=== PATIENT | female | born 1965 ===

== ENCOUNTER 2024-01-23 09:16 | Outpatient (REF) | payer MEDICAID, SELFPAY | END 2024-01-23 09:17 | disposition home or self-care (01) | LOC: HO.HHCLNP 09:16 | PROVIDERS: Visit Provider Registered Nurse | DX: R30.0 Dysuria (principal) | CPT/HCPCS: 87086 ==

== ENCOUNTER 2024-02-05 11:17 | Outpatient (REF) | payer MEDICAID, SELFPAY ==
--- NOTE | ~2024-02-05 | XR_ITS ---
EXAMINATION: XR ANKLE, LEFT CLINICAL INFORMATION: Acute left ankle pain COMPARISON: None available. TECHNIQUE: AP, lateral, and mortise views of the left ankle. FINDINGS: Moderate lateral soft tissue swelling but the mortise is intact. Base of the fifth metatarsal intact. No fracture, dislocation or destructive lesion. Mild spurring along the inferior posterior margins of the calcaneus noted. XR/XR ankle LT min 3V IMPRESSION: Lateral soft tissue alterations. If there is concern for ATFL injury, MRI would be the study of choice.
== END 2024-02-05 11:18 | disposition home or self-care (01) ==
LOC: HO.HHCX 11:17
PROVIDERS: Visit Provider Family Medicine
DX: M25.572 Pain in left ankle and joints of left foot (principal)
CPT/HCPCS: 73610

== ENCOUNTER 2024-04-15 13:50 | Outpatient (REF) | payer MEDICAID, SELFPAY ==
[2024-04-15 16:08] LABS: MANUAL DIFF FLAG NO
[2024-04-15 16:22] LABS: Basophils Percent Auto 0.5 % (0-2); Eosinophils Absolute Auto 0.1 X10*3/uL (0.0-0.4); Eosinophils Percent Auto 1.2 % (0-4); Hematocrit 38.3 % (37.0-47.0); Hemoglobin 12.3 g/dl (12.0-16.0); Imm Gran Abs Auto 0.05 X10*3/uL (0.00-0.03); Imm Gran Pct Auto 0.6 % (0.0-0.4); Lymphocytes Absolute Auto 2.7 X10*3/uL (1.2-4.9); Lymphocytes Percent Auto 31.1 % (20-40); Mean Corpuscular HGB Conc 32.1 g/dl (31.0-35.0); Mean Corpuscular Hemoglobin 27.8 pg (27.0-33.0); Mean Corpuscular Volume 86.7 fL (80.0-98.0); Mean Platelet Volume 11.2 fL (9.4-12.3); Monocytes Absolute Auto 0.6 X10*3/uL (0.1-1.2); Monocytes Percent Auto 6.2 % (2-11); Neutrophils Absolute Auto 5.3 x10*3/uL (2.0-8.3); Neutrophils Percent Auto 60.4 % (45-73); Platelet Count 250 X10*3/uL (160-400); Red Blood Count 4.42 X10*6/uL (4.20-5.50); Red Cell Distribution Width 13.2 % (11.0-16.0); White Blood Count 8.8 X10*3/uL (4.8-10.8)
[2024-04-15 16:52] LABS: Alanine Aminotransferase 24 U/L (0-31); Albumin Level 4.2 g/dL (3.5-5.0); Alkaline Phosphatase 90 U/L (39-117); Anion Gap 12 (12-20); Aspartate Amino Transferase 20 U/L (5-31); Bilirubin Total 0.5 mg/dL (0.0-1.0); Blood Urea Nitrogen 11 mg/dL (9-16); Calcium 10.1 mg/dL (8.4-10.2); Carbon Dioxide 27 mmol/L (22-29); Chloride 107 mmol/L (96-108); Estimated Glomerular Filt Rate > 60; Glucose Random 138 mg/dL (60-115); Potassium 3.7 mmol/L (3.3-5.1); Sodium 142 mmol/L (135-145); Total Protein 7.6 g/dL (6.5-8.0)
[2024-04-15 16:59] LABS: TSH reflex Free T4 1.49 uIU/mL (0.32-4.0)
== END 2024-04-15 13:51 | disposition home or self-care (01) ==
LOC: HO.HHCL 13:50
PROVIDERS: Visit Provider Student in an Organized Health Care Education/Training Program
DX: Z13.89 Encounter for screening for other disorder (principal)
CPT/HCPCS: 36415; 80053; 84443; 85025

== ENCOUNTER 2024-05-11 08:46 | Outpatient (REF) | payer MEDICAID, SELFPAY | END 2024-05-11 08:47 | disposition home or self-care (01) | LOC: HO.HOSX 08:46 | PROVIDERS: Visit Provider Orthopaedic Surgery | DX: M25.562 Pain in left knee (principal) | CPT/HCPCS: 99202 ==

== ENCOUNTER 2024-05-11 10:28 | Outpatient (AMB) | payer MEDICAID, SELFPAY ==
--- NOTE | 2024-05-11 10:39 | A.OFFVIS_ITS ---
Vital Signs 05/11/24 10:46 Height 5 ft 4 in Weight 230 lb BMI 39.5 Intake Visit Reasons: [employer]ING [employer]ER- LT knee pain Intake Note: Uyen a 58 year old female who presents with complaints of progressively worsening left knee pain and giving way. The patient describes her pain as sharp in nature. She states that her symptoms have gotten worse over the last year. Most of the pain is along the medial aspect of her knee. She states that her left knee will give out several times per day. She has done formal physical therapy which gave her no relief. She has also tried Tylenol and Motrin which gave her minimal relief. She has failed the last 6 weeks of conservative treatments. [employer] Founder Name: Corry ID#[id number] Allergies prochlorperazine [From Compazine] Allergy (Verified 05/11/24 10:47) Anaphylaxis Medication List - Last Reconciled 05/11/24 by Evans Venegas MD albuterol sulfate 90 mcg/actuation (Ventolin HFA) 2 puffs inhalation Q4-6H PRN diclofenac sodium 1% topical fluticasone propion-salmeterol 500-50 mcg/dose (Advair Diskus) 1 ea inhalation lidocaine 5% patches topical losartan 25 mg PO QAM meclizine 25 mg PO TID PRN metformin ER 500 mg PO montelukast 10 mg PO BEDTIME tizanidine 2 mg PO Q6H PRN PFSH Surgical History (Updated 05/11/24 @ 10:50 by KENDALL Maldonado) Hx of section Social History (Updated 05/11/24 @ 10:50 by KENDALL Maldonado) Patient Tobacco Use Status: Never used Tobacco Current occupational status: employed Current occupation: [employer] Physical Exam Vital Signs: BMI result Body Mass Index 39.5 Const Other: Well-nourished well-developed very friendly female awake alert and oriented x3 in no acute distress Extrem Other: Bilateral lower extremity examination shows good capillary refill, no skin lesions noted, normal sensation light touch Left knee examination shows a minimal effusion, minimal crepitus with range of motion, tenderness along her medial joint line, positive Luz Maria's test, no instability Results Reviewed Results Reviewed: Standing full weight-bearing x-rays of the patient's left knee show mild diffuse joint space narrowing, no acute bony abnormalities Assessment & Plan Assessment & Plan (1) Left knee pain: Code(s): M25.562 - Pain in left knee Category: Medical Plan Ms. Thibodeaux presents with progressively worsening left knee pain and mechanical symptoms most likely due to a tear of her medial meniscus. Thus, I will send the patient for an MRI of her left knee for further evaluation. I will see her back once the MRI is completed to discuss the findings and treatment options. She will contact me prior to that time should her symptoms worsen in any way. I spent 20 minutes in reviewing the patient's records and imaging studies, seeing the patient and documenting in the medical record. Orders: Orders XR knee LT 3V 05/11/24 M25.562 - Pain in left knee MR knee LT wo con 05/11/24 M25.562 - Pain in left knee Coding Level of Care Code New Pt Level 3 (13568) Complex EM visit Add On G2211 Diagnoses Left knee pain M25.562
[2024-05-11 10:46] VITALS: BMI 39.5
== END 2024-05-11 10:59 | disposition home or self-care (01) ==
PROVIDERS: Visit Provider Orthopaedic Surgery
DX: M25.562 Pain in left knee (principal)
CPT/HCPCS: 99203

== ENCOUNTER 2024-06-24 16:44 | Outpatient (REF) | payer MEDICAID, SELFPAY ==
[2024-06-24 17:46] LABS: Appearance Urine Turbid; Color Urine Dark Yellow; Glucose Urine UA Negative (Negative); Leukocyte Esterase Urine Negative (Negative); Nitrite Urine Negative (Negative); Specific Gravity - Urine >= 1.030 (1.005-1.025); UMIC TRIGGER UACC YES; Urine Blood Trace (Negative); Urine Ketones Trace mg/dL (Negative); Urine Protein Trace mg/dL (Neg-Trace)
[2024-06-24 18:12] LABS: Bacteria Urine 4+ (None Seen); Calcium Oxalate Crystals Urine Present; Hyaline Casts Urine 0-2 /LPF (0-2); RBC Urine 0-2 /HPF (0-2); WBC Urine 0-5 /HPF (0-5)
== END 2024-06-24 16:45 | disposition home or self-care (01) ==
LOC: HO.LNP 16:44
PROVIDERS: Visit Provider Family Medicine
DX: R30.9 Painful micturition, unspecified (principal)
CPT/HCPCS: 81001

== ENCOUNTER 2024-08-07 | Outpatient (REF) | payer MEDICAID, SELFPAY ==
--- NOTE | ~2024-08-07 | MR_ITS ---
EXAMINATION: MR KNEE WITHOUT CONTRAST, LEFT CLINICAL INFORMATION: Left knee pain counseling, numbness. COMPARISON: None available. TECHNIQUE: MRI of the knee without contrast was performed using routine sequences on a high-field scanner. FINDINGS: MENISCI: Medial Meniscus: Intrasubstance degenerative signal within the meniscal body and posterior horn without articular surface tearing. Lateral Meniscus: Intact LIGAMENTS: Cruciate: Intact Collateral: Mild edema adjacent to the medial collateral ligament consistent with a grade 1 sprain. Intact fibular collateral ligament. EXTENSOR MECHANISM: Mild distal quadriceps tendinosis. Intact patellar tendon. Normal patellofemoral alignment. ARTICULAR CARTILAGE/BONE: Patellofemoral Compartment: Inferior medial trochlear articular cartilage signal heterogeneity. Medial Compartment: Intact articular cartilage. Lateral Compartment: Intact articular cartilage. JOINT FLUID AND BURSAE: Trace joint effusion and trace Madera's cyst. MR/MR knee LT wo con IMPRESSION: 1. Intrasubstance degenerative signal within the medial meniscal body and posterior horn without articular surface tearing. 2. Grade 1 sprain of the medial collateral ligament. 3. Mild distal quadriceps tendinosis. 4. Minimal patellofemoral arthrosis. Trace joint effusion and trace Madera's cyst. Electronically signed by: Taiwo Stevenson MD 08/19/2024 01:17 PM [facility]
== END 2024-08-07 00:01 | disposition home or self-care (01) ==
LOC: HO.MRI
PROVIDERS: PCP Family Medicine; Visit Provider Orthopaedic Surgery
DX: M25.562 Pain in left knee (principal)
CPT/HCPCS: 73721

== ENCOUNTER 2024-09-22 17:20 | Emergency (ER) | payer MEDICAID, SELFPAY ==
[2024-09-22 17:26] VITALS: BP 153/79; PULSE 107; RESP 20; TEMP 37.3; O2SAT 95; BMI 60.5
--- NOTE | 2024-09-22 17:29 | ED.GENADULT ---
HPI - General Adult General Chief complaint: Upper Respiratory Symptoms Stated complaint: headache x4 days Related Data Home Medications ?Medication ?Instructions ?Recorded ?Confirmed albuterol sulfate 90 mcg/actuation 2 puff inhalation Q4-6H PRN dyspnea 05/11/24 09/27/24 aerosol inhaler (Ventolin HFA) fluticasone 500 mcg-salmeterol 50 1 ea inhalation BID 05/11/24 09/27/24 mcg/dose blistr powdr for inhalation (Advair Diskus) losartan 25 mg tablet 25 mg PO QAM 05/11/24 09/27/24 meclizine 25 mg tablet 25 mg PO TID PRN dizziness 05/11/24 09/27/24 metformin 500 mg tablet,extended 500 mg PO BID 05/11/24 09/27/24 release 24 hr montelukast 10 mg tablet 10 mg PO BEDTIME 05/11/24 09/27/24 loratadine 10 mg tablet 10 mg PO DAILY 09/27/24 09/27/24 Previous Rx's ?Medication ?Instructions ?Recorded benzonatate 100 mg capsule 100 mg PO TID PRN Cough #9 caps 09/29/24 cefuroxime axetil 500 mg tablet 500 mg PO BID #6 tabs 09/29/24 doxycycline hyclate 100 mg tablet 100 mg PO BID #6 tabs 09/29/24 prednisone 10 mg tablet See Taper PO DIRECTED #30 tabs 09/29/24 Allergies Allergy/AdvReac Type Severity Reaction Status Date / Time prochlorperazine Allergy Anaphylaxis Verified 09/26/24 14:28 [From Compazine] [facility] Past Medical History Medical History (Updated 10/22/24 @ 12:55 by Raul Aden) Anxiety Insulin dependent type 2 diabetes mellitus Asthma Surgical History Hx of section Social History Social History Household Members: Children Housing: Apartment Do you presently have visiting nurse or other home services: No Patient Tobacco Use Status: Never used Tobacco service: No Current occupational status: employed 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 She also complains of nausea and unable to eat anything. Plan for viral swabs and labs Medical Decision Making Lab Data 09/22/24 18:25 09/22/24 18:25 Labs: Lab Results 09/22/24 Range/Units 18:25 WBC 8.4 (4.8-10.8) X10*3/uL RBC 4.70 (4.20-5.50) X10*6/uL Hgb 13.1 (12.0-16.0) g/dl Hct 40.6 (37.0-47.0) % MCV 86.4 (80.0-98.0) fL MCH 27.9 (27.0-33.0) pg MCHC 32.3 (31.0-35.0) g/dl RDW 13.3 (11.0-16.0) % Plt Count 231 (160-400) X10*3/uL MPV 10.7 (9.4-12.3) fL Immature Gran % (Auto) 0.4 (0.0-0.4) % Neut % (Auto) 76.6 H (45-73) % Lymph % (Auto) 13.3 L (20-40) % [place] % (Auto) 9.5 (2-11) % Eos % (Auto) 0.0 (0-4) % Baso % (Auto) 0.2 (0-2) % Lymph # (Auto) 1.1 L (1.2-4.9) X10*3/uL [place] # (Auto) 0.8 (0.1-1.2) X10*3/uL Eos # (Auto) 0.0 (0.0-0.4) X10*3/uL Baso # (Auto) 0.0 (0.0-0.2) X10*3/uL Abs Immat Gran (auto) 0.03 (0.00-0.03) X10*3/uL Absolute Neuts (auto) 6.5 (2.0-8.3) x10*3/uL Absolute Nucleated RBC 0.000 (0.0-0.012) X10*3/uL Nucleated RBC % (auto) 0.0 (0.0-0.2) /100WBC Sodium 136 (135-145) mmol/L Potassium 4.0 (3.3-5.1) mmol/L Chloride 105 (96-108) mmol/L Carbon Dioxide 26 (22-29) mmol/L Anion Gap 9 L (12-20) BUN 15 (9-16) mg/dL Creatinine 0.96 (0.5-1.4) mg/dL Estim Creat Clear Calc 98.8 Estimated GFR 60 Random Glucose 178 H (60-115) mg/dL Calcium 9.1 D (8.4-10.2) mg/dL Total Bilirubin 0.5 (0.0-1.0) mg/dL AST 28 (5-31) U/L ALT 33 H (0-31) U/L Alkaline Phosphatase 101 (39-117) U/L Total Protein 7.8 (6.5-8.0) g/dL Albumin 4.2 (3.5-5.0) g/dL Lipase 19 (8-78) U/L Influenza Type A (PCR) POSITIVE A (Negative) Influenza Type B (PCR) NEGATIVE (Negative) RSV RNA Qual (PCR) NEGATIVE (Negative) SARS-CoV-2 RNA (RT-PCR) NEGATIVE (Negative) S. pyogenes GrpA SG Negative (Negative) Discharge Plan Discharge Clinical Impression: Cough Patient Disposition: Left W/O Completing Treatment Prescriptions: No Action loratadine 10 mg Tablet 10 mg PO DAILY benzonatate 100 mg Capsule 100 mg PO TID PRN (Reason: Cough) Qty: 9 0RF prednisone 10 mg tablet See Taper PO DIRECTED Qty: 30 0RF Taper: Prednisone 40 mg daily for 3 Days and 0 Hour 30 mg daily for 3 Days and 0 Hour 20 mg daily for 3 Days and 0 Hour 10 mg daily for 3 Days and 0 Hour Rx Instructions: see taper instructions cefuroxime axetil 500 mg tablet 500 mg PO BID Qty: 6 0RF doxycycline hyclate 100 mg tablet 100 mg PO BID Qty: 6 0RF albuterol sulfate [Ventolin HFA] 90 mcg/actuation HFA aerosol inhaler 2 puff inhalation Q4-6H PRN (Reason: dyspnea) metformin 500 mg tablet extended release 24 hr 500 mg PO BID losartan 25 mg tablet 25 mg PO QAM fluticasone propion-salmeterol [Advair Diskus] 500-50 mcg/dose blister with device 1 ea inhalation BID meclizine 25 mg tablet 25 mg PO TID PRN (Reason: dizziness) montelukast 10 mg tablet 10 mg PO BEDTIME Discharge Date/Time: 09/22/24 20:11
[2024-09-22 18:29] LABS: MANUAL DIFF FLAG NO
[2024-09-22 18:33] LABS: Basophils Percent Auto 0.2 % (0-2); Hematocrit 40.6 % (37.0-47.0); Hemoglobin 13.1 g/dl (12.0-16.0); Imm Gran Abs Auto 0.03 X10*3/uL (0.00-0.03); Imm Gran Pct Auto 0.4 % (0.0-0.4); Lymphocytes Absolute Auto 1.1 X10*3/uL (1.2-4.9); Lymphocytes Percent Auto 13.3 % (20-40); Mean Corpuscular HGB Conc 32.3 g/dl (31.0-35.0); Mean Corpuscular Hemoglobin 27.9 pg (27.0-33.0); Mean Corpuscular Volume 86.4 fL (80.0-98.0); Mean Platelet Volume 10.7 fL (9.4-12.3); Monocytes Absolute Auto 0.8 X10*3/uL (0.1-1.2); Monocytes Percent Auto 9.5 % (2-11); Neutrophils Absolute Auto 6.5 x10*3/uL (2.0-8.3); Neutrophils Percent Auto 76.6 % (45-73); Platelet Count 231 X10*3/uL (160-400); Red Cell Distribution Width 13.3 % (11.0-16.0); White Blood Count 8.4 X10*3/uL (4.8-10.8)
[2024-09-22 18:36] LABS: IDNOW Serial# 08D9AD1C; Strep A Nucleic Acid Negative (Negative)
[2024-09-22 19:03] LABS: Alanine Aminotransferase 33 U/L (0-31); Albumin Level 4.2 g/dL (3.5-5.0); Alkaline Phosphatase 101 U/L (39-117); Anion Gap 9 (12-20); Aspartate Amino Transferase 28 U/L (5-31); Bilirubin Total 0.5 mg/dL (0.0-1.0); Blood Urea Nitrogen 15 mg/dL (9-16); Calcium 9.1 mg/dL (8.4-10.2); Carbon Dioxide 26 mmol/L (22-29); Chloride 105 mmol/L (96-108); Creatinine Clr Calc Pharmacy 98.8; Estimated Glomerular Filt Rate 60; Glucose Random 178 mg/dL (60-115); Lipase 19 U/L (8-78); Sodium 136 mmol/L (135-145); Total Protein 7.8 g/dL (6.5-8.0)
[2024-09-22 19:10] LABS: Influenza A PCR POSITIVE (Negative); Influenza B PCR NEGATIVE (Negative); Resp Syncy Virus RNA Qual PCR NEGATIVE (Negative); SARS COV2 PCR INHOUSE NEGATIVE (Negative)
== END 2024-09-22 20:11 | disposition left against medical advice (07) ==
PROVIDERS: Physician Assistant; Emergency Provider Emergency Medicine; PCP Family Medicine
DX: R05.9 Cough, unspecified (principal); J10.1 Influenza due to other identified influenza virus with other respiratory manifestations; R51.9 Headache, unspecified; R09.89 Other specified symptoms and signs involving the circulatory and respiratory systems; E11.8 Type 2 diabetes mellitus with unspecified complications; Z79.84 Long term (current) use of oral hypoglycemic drugs
CPT/HCPCS: 0241U; 36415; 80053; 83690; 85025; 87651; 99281; 99283

== ENCOUNTER 2024-09-26 14:02 | Inpatient (IN) | payer MEDICAID, SELFPAY ==
[2024-09-26] VITALS (7 sets, daily range): BP systolic 108–154; BP diastolic 64–91; PULSE 88–108; RESP 16–22; TEMP 37–38; O2SAT 94–98; BMI 44.8
--- NOTE | ~2024-09-26 | CT_ITS ---
CLINICAL HISTORY: further eval of R lung mass (infection vs. mass) CTA angiography chest using bolus contrast injection. 3-D postprocessing Comparison: 09/1924 Findings: Normal thoracic aorta and branch vessels. Pulmonary artery diameter is normal. Heart size is mildly enlarged. . RV/LV ratio normal. No pericardial fluid. No mediastinal adenopathy. A 9 mm short axis diameter lymph node is present in the anterior distal pretracheal space. The trachea and esophagus are unremarkable. There is focal pleural-based consolidation involving posterior right upper lobe segment with Hounsfield density consistent with consolidation/pneumonia. Below the diaphragm , there is an enlarged fatty liver. Calcification is present in the gallbladder. No acute fractures Impression: Focal consolidation/pneumonia involving the posterior segment of the right upper lobe. No solid pulmonary masses or nodules. Borderline cardiac enlargement with pulmonary vascular congestion and posterior bilateral lower lung field atelectasis and gravity dependent pulmonary edema. . Negative for pulmonary embolus. There is complete occlusion of posterior segment right upper lobe bronchus, image 151, series 5. This document has been electronically signed by: Rajan Leon MD on 09/26/2024 19:25:59
--- NOTE | ~2024-09-26 | XR_ITS ---
CLINICAL HISTORY: right lung pain 2 view chest x-ray. Comparison: None Findings: No pleural effusion . There is a 4.2 cm mass in the right upper lung field. Left lung is clear. Heart size normal No acute fracture Impression: 4.2 cm round mass in the right upper lung field. Evaluate for neoplasm, consider CT if not already done. This document has been electronically signed by: Rajan Leon MD on 09/26/2024 15:26:33
--- NOTE | 2024-09-26 14:25 | ED_ITS ---
HPI - General Adult General Chief complaint: General Medical Stated complaint: Side pain, FLU+ last week Time Seen by Provider: 09/26/24 15:58 Source: patient, family (patient's daughter), old records reviewed and spearer (all interactions with this patient were facilitated with an [facility] business office technology instructor) Mode of arrival: ambulatory Limitations: language barrier (all interactions with this patient were facilitated with an [facility] business office technology instructor) History of Present Illness ED Provider: Shantal Soriano PA-C HPI narrative: Patient is a 59 year old assigned female at with a history of DM, HTN, and recent influenza diagnosis presenting to the emergency department today with nausea, vomiting, diarrhea, and right lung pain. Patient states that over the last 6 days she has had worsening nausea, vomiting, diarrhea, and right sided lung pain. Patient denies any dizziness, lightheadedness, abdominal pain, fever, chills, blurry vision, double vision, loss of vision, difficulty breathing, shortness of breath, back pain, night sweats, pain with urination, increased urinary frequency, increased urinary urgency, blood in her urine or stool, syncope or a near syncopal episode, recent trauma or falls, bowel incontinence, bladder incontinence, or any other complaints at this time. Onset (ago): day(s) () Relieving factors: none Exacerbating factors: none Associated symptoms: nausea/vomiting Treatments prior to arrival: none Related Data Home Medications ?Medication ?Instructions ?Recorded ?Confirmed albuterol sulfate 90 mcg/actuation 2 puff inhalation Q4-6H PRN dyspnea 05/11/24 05/11/24 aerosol inhaler (Ventolin HFA) diclofenac sodium 1 % topical gel topical 05/11/24 05/11/24 fluticasone 500 mcg-salmeterol 50 1 ea inhalation 05/11/24 05/11/24 mcg/dose blistr powdr for inhalation (Advair Diskus) lidocaine 5 % topical patch patch topical 05/11/24 05/11/24 losartan 25 mg tablet 25 mg PO QAM 05/11/24 05/11/24 meclizine 25 mg tablet 25 mg PO TID PRN dizziness 05/11/24 05/11/24 metformin 500 mg tablet,extended 500 mg PO 05/11/24 05/11/24 release 24 hr montelukast 10 mg tablet 10 mg PO BEDTIME 05/11/24 05/11/24 tizanidine 2 mg tablet 2 mg PO Q6H PRN muscle spasm 05/11/24 05/11/24 Allergies Allergy/AdvReac Type Severity Reaction Status Date / Time prochlorperazine Allergy Anaphylaxis Verified 09/26/24 14:28 [From Compazine] Review of Systems 2 Constitutional: Constitutional: Reports no additional constitutional complaints, Denies chills, Denies fever(s) and Denies night sweats Eyes: Eyes: Reports no additional eye complaints, Denies blurry vision, Denies change in vision, Denies diplopia, Denies eye discharge, Denies loss of vision and Denies eye pain ENT: Denies dizziness Cardiovascular: Cardiovascular: Reports no additional cardiovascular complaints, Reports chest pain, Denies lightheadedness, Denies Loss of Consciousness and Denies dyspnea Respiratory: Respiratory: Reports no additional respiratory complaints and Denies dyspnea Gastrointestinal: Gastrointestinal: Reports no additional gastrointestinal complaints, Denies abdominal pain, Denies melena, Denies hematochezia, Denies change in bowel habits, Denies change in stool character, Reports nausea and Reports vomiting Genitourinary: Genitourinary: Denies hematuria, Denies urinary frequency, Denies dysuria, Denies urinary incontinence, Denies urinary hesitancy and Denies urinary urgency Musculoskeletal: Musculoskeletal: Reports no additional musculoskeletal complaints, Denies numbness and Denies tingling Neurologic: Denies dizziness, Denies loss of vision, Denies numbness and Denies tingling Psychiatric: Psychiatric: Reports no additional psychiatric complaints Endocrine: Endocrine: Reports no additional endocrine complaints Hematologic/Lymphatic: Hematologic/Lymphatic: Reports no additional hematologic/lymphatic complaints Allergic/Immunologic: Allergic/Immunologic: Reports no additional allergic/immunologic complaints [facility] Past Medical History Attestation statement: The following information was validated with the patient. (all interactions validated with the patient's daughter) Source: old records reviewed, obtained from family (patient's daughter provided additional history and confirmed the history provided by the patient.) and nursing notes reviewed Surgical History Hx of section Social History Social History Patient Tobacco Use Status: Never used Tobacco Advance Directives: No Advance Directives Information Provided: No Current occupational status: employed Current occupation: [employer] Physical Exam ED Vital Signs: Vital Signs - 24 hr 09/26/24 14:25 09/26/24 16:42 09/26/24 17:06 Temperature 100 F 100.4 F Pulse Rate 108 H 100 99 Respiratory Rate 22 H 18 19 Blood Pressure 140/80 H 140/73 H 154/76 H Pulse Oximetry 97 94 98 Oxygen Delivery Method Room Air Room Air Nasal Cannula Oxygen Flow Rate 2 09/26/24 18:33 Temperature 99 F Pulse Rate 107 H Respiratory Rate 19 Blood Pressure 130/91 H Pulse Oximetry 98 Oxygen Delivery Method Nasal Cannula Oxygen Flow Rate 2 BMI result Body Mass Index 44.8 Const General: cooperative, no acute distress, alert and awake Nutritional Appearance: well nourished Orientation/consciousness: patient oriented x3 Limitations: no limitations HENMT Head: Yes normal to inspection and Yes atraumatic Ears: hearing grossly normal bilaterally and external ears normal General nose exam: Normal external nose present, no nasal discharge noted and no epistaxis Face and sinus: Yes normal facial exam, No abrasion and No laceration Mouth: Normal oral and palatal mucosa present, no drooling and no muffled voice Eyes General: appearance normal, both eyes and all related structures Periorbital: periorbital findings normal Eyelids: Yes eyelids normal Conjunctivae: conjunctivae normal Pupils: Equal, round and reactive pupils present EOM: EOMs intact bilaterally Neck Neck: Yes normal visual inspection, Yes full ROM and Yes no lymphadenopathy Chest Chest palpation & inspection: normal inspection of the chest Resp Effort & Inspection: normal respiratory effort and able to speak in complete sentences Cardio Rate: tachycardic Rhythm: regular rhythm GI Inspection: Yes normal to inspection Neuro General: patient oriented x3 and moves all extremities Cranial nerves: Yes Equal, round and reactive pupils present Cognition (Neuro): normal cognition Extrem General: Yes normal to inspection, Yes full ROM and Yes capillary refill normal Psych Appearance: grossly normal Mental Status: mental status grossly normal Affect: normal affect Attitude: cooperative Thought process: Normal thought process present Thought content: Normal thought content present Insight: Good insight present (Psych) Course Course Course Narrative: This is a Rapid Medical Examination (RME) performed by Davidson Chester PA-C in triage. Full HPI, ROS, assessment and treatment plan per primary provider in the Main ED. 59 yo female here w/ fever, nausea, vomiting, diarrhea, dizziness, and right lung pain x6 days. seen in our ED on 09/22/24 - [facility]. she was called and informed that she was flu A positive. Plan: labs, CXR, ekg. no need for repeat serology. Medications Administered Discontinued Medications Generic Name Dose Route Start Last Admin Trade Name Billy PRN Reason Stop Dose Admin Ceftriaxone Sodium 1 gm 09/26/24 16:04 09/26/24 16:34 Ceftriaxone Sodium 1 Gm Vial IVPUSH 09/26/24 16:05 1 gm ONCE ONE Administration Hydromorphone HCl 1 mg 09/26/24 16:49 09/26/24 16:58 Hydromorphone Hcl 1 Mg/Ml Syringe IVPUSH 09/26/24 16:50 1 mg ONCE ONE Administration Protocol Acetaminophen 1,000 mg in 100 mls @ 400 mls/hr 09/26/24 18:24 09/26/24 18:31 Ofirmev IV 09/26/24 18:38 400 mls/hr ONCE ONE Administration Iohexol 85 ml 09/26/24 18:06 09/26/24 18:07 Iohexol 350 Mg/Ml 100 Ml Infus..Btl IV 09/26/24 18:07 85 ml ONCE ONE Administration Morphine Sulfate 4 mg 09/26/24 16:23 09/26/24 16:31 Morphine Sulfate 4 Mg/Ml Cartridge IVPUSH 09/26/24 16:24 4 mg ONCE ONE Administration Protocol Ondansetron HCl 4 mg 09/26/24 16:04 09/26/24 16:19 Ondansetron Hcl 4 Mg/2 Ml Vial IVPUSH 09/26/24 16:05 4 mg ONCE ONE Administration Medical Decision Making Medical Decision Making [facility] Narrative: Patient is a 59 year old assigned female at with a history of DM, HTN, and recent influenza diagnosis presenting to the emergency department today with nausea, vomiting, diarrhea, and right lung pain. Patient's physical exam was as noted in the physical exam portion of this note. Patient's blood work showed a WBC count of 14.9. Patient's influenza test was positive as of 09/22/2024. Patient's EKG showed tachycardia. Patient's chest x-ray showed a 4cm mass in the right lung which the radiologist recommended a CT scan to further differentiate. Chest CT showed focal consolidation / pneumonia in the posterior aspect of the right upper lung lobe. I spoke to the hospitalist, Dr. Bautista, who agreed to admission. Patient was given IV Ceftriaxone and pain medication. Patient's presentation is most consistent with superimposed pneumonia with viral influenza and not sepsis (@1935). I explained my physical exam findings as well as all test results to the patient and the patient's daughter. I answered all questions asked by the patient and the patient's. Patient and the patient's daughter verbalized agreement and understanding with this treatment plan and admission. Differential Diagnosis Differential Diagnoses: The differential diagnosis associated with the presentation includes PNA Influenza Admission/Observation Consideration of admission/observation: Escalation of care including admission/observation considered Patient admitted as noted in the MDM Rationale portion of this note. Consult Healthcare Provider Management of the patient was discussed with: Hospitalist (agreed to admission as noted in the MDM Rationale portion of this note.) Lab Data [facility] Lab Attestation statement: I reviewed the patient's lab results. My interpretation of these results are in the MDM Rationale portion of this note. 09/26/24 14:49 09/26/24 14:49 Labs: Lab Results 09/26/24 09/26/24 Range/Units 14:49 16:25 WBC 14.9 H (4.8-10.8) X10*3/uL RBC 4.69 (4.20-5.50) X10*6/uL Hgb 13.1 (12.0-16.0) g/dl Hct 39.0 (37.0-47.0) % MCV 83.2 (80.0-98.0) fL MCH 27.9 (27.0-33.0) pg MCHC 33.6 (31.0-35.0) g/dl RDW 13.1 (11.0-16.0) % Plt Count 271 (160-400) X10*3/uL MPV 10.3 (9.4-12.3) fL Immature Gran % (Auto) 0.7 H (0.0-0.4) % Neut % (Auto) 78.2 H (45-73) % Lymph % (Auto) 14.5 L (20-40) % [place] % (Auto) 6.5 (2-11) % Eos % (Auto) 0.0 (0-4) % Baso % (Auto) 0.1 (0-2) % Lymph # (Auto) 2.2 (1.2-4.9) X10*3/uL [place] # (Auto) 1.0 (0.1-1.2) X10*3/uL Eos # (Auto) 0.0 (0.0-0.4) X10*3/uL Baso # (Auto) 0.0 (0.0-0.2) X10*3/uL Abs Immat Gran (auto) 0.10 H (0.00-0.03) X10*3/uL Absolute Neuts (auto) 11.6 H (2.0-8.3) x10*3/uL Absolute Nucleated RBC 0.000 (0.0-0.012) X10*3/uL Nucleated RBC % (auto) 0.0 (0.0-0.2) /100WBC PT 12.5 H (10.9-12.4) SEC INR 1.1 (0.9-1.1) Sodium 140 (135-145) mmol/L Potassium 3.6 (3.3-5.1) mmol/L Chloride 108 (96-108) mmol/L Carbon Dioxide 19 L (22-29) mmol/L Anion Gap 17 (12-20) BUN 14 (9-16) mg/dL Creatinine 0.77 (0.5-1.4) mg/dL Estim Creat Clear Calc 94.8 Estimated GFR > 60 Random Glucose 139 H (60-115) mg/dL Lactic Acid 1.6 (0.5-2.0) mmol/L Calcium 9.0 (8.4-10.2) mg/dL Magnesium 1.6 (1.6-2.6) mg/dL Total Bilirubin 0.5 (0.0-1.0) mg/dL AST 37 H (5-31) U/L ALT 28 (0-31) U/L Alkaline Phosphatase 92 (39-117) U/L Troponin I High Sens 7.4 (<3.5-17.0) ng/L Total Protein 8.0 (6.5-8.0) g/dL Albumin 4.0 (3.5-5.0) g/dL Lipase 28 (8-78) U/L Independent Interpretation I performed an independent interpretation of an: EKG, Plain X-Ray and CT Scan Interpretation: My interpretation is in agreement with the radiologist's impression of these imaging studies. L CLINICAL HISTORY: right lung pain 2 view chest x-ray. Comparison: None Findings: No pleural effusion . There is a 4.2 cm mass in the right upper lung field. Left lung is clear. Heart size normal No acute fracture Impression: 4.2 cm round mass in the right upper lung field. Evaluate for neoplasm, consider CT if not already done. This document has been electronically signed by: Rajan Leon MD on 09/26/2024 15:26:33 Dictated By: Rajan Leon MD Signed By: Electronically signed by Rajan Leon MD 09/26/24 1527 Report Number: [id number]: Total DLP = 385.00 mGy-cm CLINICAL HISTORY: further eval of R lung mass (infection vs. mass) CTA angiography chest using bolus contrast injection. 3-D postprocessing Comparison: 09/1924 Findings: Normal thoracic aorta and branch vessels. Pulmonary artery diameter is normal. Heart size is mildly enlarged. . RV/LV ratio normal. No pericardial fluid. No mediastinal adenopathy. A 9 mm short axis diameter lymph node is present in the anterior distal pretracheal space. The trachea and esophagus are unremarkable. There is focal pleural-based consolidation involving posterior right upper lobe segment with Hounsfield density consistent with consolidation/pneumonia. Below the diaphragm , there is an enlarged fatty liver. Calcification is present in the gallbladder. No acute fractures Impression: Focal consolidation/pneumonia involving the posterior segment of the right upper lobe. No solid pulmonary masses or nodules. Borderline cardiac enlargement with pulmonary vascular congestion and posterior bilateral lower lung field atelectasis and gravity dependent pulmonary edema. . Negative for pulmonary embolus. There is complete occlusion of posterior segment right upper lobe bronchus, image 151, series 5. This document has been electronically signed by: Rajan Leon MD on 09/26/2024 19:25:59 Dictated By: Rajan Leon MD Signed By: Electronically signed by Rajan Leon MD 09/26/24 1927 Vent. Rate: 109 BPM Atrial Rate: 109 BPM P-R Int: 126 ms QRS Dur: 78 ms QT Int: 320 ms P-R-T Axes: 54 5 13 degrees QTcB Int: 430 ms Sinus tachycardia Nonspecific ST abnormality No previous ECGs available DD/ [id number] Radiology Impression Discussion of test interpretation with radiology: I have reviewed the radiologist's reading. Independent Historian Clinical information obtained from an independent historian. History obtained from or confirmed by: Other (patient's daughter provided additional history and confirmed the history provided by the patient.) Chronic Conditions Patient?s care impacted by: Diabetes and Hypertension Critical Care Time Critical Care Time Critical Care Time: Yes Total Critical Care Time: 48 Attestation: I spent 48 minutes of Critical Care Time with this patient. This does not include time spent on separately reported billable procedures. Discharge Plan Discharge Clinical Impression: Pneumonia, Influenza Patient Disposition: Admitted As Inpatient
--- NOTE | 2024-09-26 14:27 | ECG_ITS ---
Test Reason : CHEST PAIN Blood Pressure : */* mmHG Vent. Rate : 109 BPM Atrial Rate : 109 BPM P-R Int : 126 ms QRS Dur : 78 ms QT Int : 320 ms P-R-T Axes : 54 5 13 degrees QTcB Int : 430 ms Sinus tachycardia Nonspecific ST abnormality Abnormal ECG No previous ECGs available Referred By: Tawny Chester Electronically Signed By: CALOS RENDON MD
[2024-09-26 14:57] LABS: MANUAL DIFF FLAG NO
[2024-09-26 14:58] LABS: Basophils Percent Auto 0.1 % (0-2); Hemoglobin 13.1 g/dl (12.0-16.0); Imm Gran Pct Auto 0.7 % (0.0-0.4); Lymphocytes Absolute Auto 2.2 X10*3/uL (1.2-4.9); Lymphocytes Percent Auto 14.5 % (20-40); Mean Corpuscular HGB Conc 33.6 g/dl (31.0-35.0); Mean Corpuscular Hemoglobin 27.9 pg (27.0-33.0); Mean Corpuscular Volume 83.2 fL (80.0-98.0); Mean Platelet Volume 10.3 fL (9.4-12.3); Monocytes Percent Auto 6.5 % (2-11); Neutrophils Absolute Auto 11.6 x10*3/uL (2.0-8.3); Neutrophils Percent Auto 78.2 % (45-73); Platelet Count 271 X10*3/uL (160-400); Red Blood Count 4.69 X10*6/uL (4.20-5.50); Red Cell Distribution Width 13.1 % (11.0-16.0); White Blood Count 14.9 X10*3/uL (4.8-10.8)
[2024-09-26 15:04] LABS: INTERNATIONAL NORM RATIO 1.1 (0.9-1.1); Prothrombin Time 12.5 SEC (10.9-12.4)
[2024-09-26 15:24] LABS: Troponin-I High Sensitivity 7.4 ng/L (<3.5-17.0)
[2024-09-26 15:27] LABS: Alanine Aminotransferase 28 U/L (0-31); Anion Gap 17 (12-20); Aspartate Amino Transferase 37 U/L (5-31); Bilirubin Total 0.5 mg/dL (0.0-1.0); Blood Urea Nitrogen 14 mg/dL (9-16); Carbon Dioxide 19 mmol/L (22-29); Chloride 108 mmol/L (96-108); Creatinine Clr Calc Pharmacy 94.8; Estimated Glomerular Filt Rate > 60; Glucose Random 139 mg/dL (60-115); Lipase 28 U/L (8-78); Magnesium 1.6 mg/dL (1.6-2.6); Potassium 3.6 mmol/L (3.3-5.1); Sodium 140 mmol/L (135-145)
[2024-09-26 16:04] LABS: Alkaline Phosphatase 92 U/L (39-117)
[2024-09-26] MEDS: ondansetron HCL 4 MG/2 ML VIAL IVPUSH ×2 (16:19→21:47)
[2024-09-26] MEDS: Morphine Sulfate 4 MG/ML CARTRIDGE IVPUSH ×2 (16:31→21:11)
[2024-09-26] MEDS: cefTRIAXone sodium 1 GM VIAL IVPUSH (16:34)
--- NOTE | 2024-09-26 16:43 | MHC.EDTECH ---
This pct just assumed care of ,lactic acid and both sets of blood culture drawn and sent to lab ,Patient was change into hospital gown ,vitals taken ,Patient resting with her eyes closed ,Patient daughter at bed side .
[2024-09-26 16:58] LABS: Lactic Acid 1.6 mmol/L (0.5-2.0)
[2024-09-26] MEDS: HYDROmorphone HCl 1 MG/ML SYRINGE IVPUSH (16:58)
--- NOTE | 2024-09-26 17:07 | PC.NURSE ---
sr on monitor, skin wpd, medicated for pain, nad and reports improvement, sleeping and easily woken, rates /10, placed on 02 for shallow breathing and spo2 dipped to 89 on RA
[2024-09-26] MEDS: iohexoL 350 MG/ML 100 ML INFUS..BTL 85 ML IV (18:07)
[2024-09-26] MEDS: Acetaminophen 1,000 MG/100 ML PIGGYBACK 400 MG IV (18:31)
[2024-09-26 20:35] LABS: B Type Natriuretic Peptide 49 pg/mL (<100)
--- NOTE | 2024-09-26 20:46 | P.HPHOSP_ITS ---
History of Present Illness Date of Service: 09/26/24 Attending physician on admission: Janae Bautista Chief Complaint: Right lung pain Pt is a 59-year-old female with a PMH significant for?asthma, [id number] type 2 diabetes, HTN, and migraines who presents to the ED with?shortness a breath and right lung pain. Pt previously presented to the ED 4 days prior on 09/22 where she had labs drawn, though was never seen by a provider as she left from the waiting room due to heavy volume. Pt has been experiencing SOB, low-grade fever, chills, and cough x6 days. Tested positive for flu. Patient's symptoms worsened and she began experiencing right sided chest/lung pain x3 days, and N/V/D x2 days. Also complains of headache. Denies chest pain/pressure. No abdominal pain. Of note, patient's daughter is at bedside who reports her mother has severe anxiety and she will likely need to stay with her at night. Reports previous hospitalization she was called at 04:00 to come to the hospital to calm her down. In the ED pt with low-grade temp of 100.4 degrees, tachycardic up to 108, tachypneic up to 22, and hypertensive as high as 154/76. Labs were significant for leukocytosis of 14.9, otherwise grossly unremarkable and around baseline for pt. Stable H&H. No significant electrolyte abnormalities. Renal and hepatic function baseline. Lactic acid WNL. BNP WNL. CXR showed 4.2 cm round mass in the right upper lung field concerning for neoplasm. CTA of chest found focal consolidation/pneumonia involving the posterior segment of the right upper lobe with complete occlusion of posterior segment of right upper lobe. EKG demonstrated sinus tachycardia of 109 without signs of significant ST elevations or depressions. Pt was treated with ondansetron, morphine, Dilaudid, Tylenol, and ceftriaxone. Pt will be admitted to the hospital for treatment and further evaluation of community acquired pneumonia with sepsis with concomitant asthma exacerbation in the setting of flu infection. Review of Systems 2 Review of Systems: Negative except for that which is stated in the [facility] Medical History (Updated 09/26/24 @ 21:12 by LILLIE Morejon) Anxiety Insulin dependent type 2 diabetes mellitus Asthma Surgical History Hx of section Social History Patient Tobacco Use Status: Never used Tobacco Advance Directives: No Advance Directives Information Provided: No Current occupational status: employed Current occupation: [employer] Meds Allergies Allergy/AdvReac Type Severity Reaction Status Date / Time prochlorperazine Allergy Anaphylaxis Verified 09/26/24 14:28 [From Compazine] Active Medications: Current Medications Acetaminophen (Acetaminophen 325 Mg Tablet) 650 mg PO Q6H PRN PRN Reason: Pain, Mild 1-3,fever,headache Albuterol/Ipratropium (Albuterol/Iprat 2.5/0.5mg 3 Ml Ampul.Neb) 3 ml INHALE Q4H PRN PRN Reason: Shortness of Breath/Wheezing Albuterol/Ipratropium (Albuterol/Iprat 2.5/0.5mg 3 Ml Ampul.Neb) 3 ml INHALE RQ4H WHILE AWAKE [facility] Benzonatate (Benzonatate 100 Mg Capsule) 100 mg PO TID PRN PRN Reason: Cough Calcium Carbonate (Calcium Carbonate 750 Mg Tab.Chew) 750 mg PO Q4H PRN PRN Reason: Heartburn Ceftriaxone Sodium (Ceftriaxone Sodium 1 Gm Vial) 1 gm IVPUSH Q24H [facility] Enoxaparin Sodium (Enoxaparin Sodium 40 Mg/0.4 Ml Syringe) 40 mg SUBCUT Q24H [facility] Glucose (Glucose Gel 15 Gm Gel..Gram.) 15 gm PO Q15M PRN; Protocol PRN Reason: per Hypoglycemia Standing Ord. Azithromycin 500 mg/ Sodium (Chloride) 250 mls @ 125 mls/hr IV Q24H [facility] Dextrose (D10) 250 mls @ 750 mls/hr IV Q15M PRN; Protocol PRN Reason: per Hypoglycemia Standing Ord. Magnesium Sulfate (Magnesium Sulfate/H2o) 2 gm in 50 mls @ 25 mls/hr IV ONCE ONE Stop: 09/26/24 22:14 Insulin Human Lispro (Insulin Lispro 100 Unit/Ml 3 Ml Vial) 0 unit SUBCUT QIDACHS [facility]; Protocol Magnesium Hydroxide (Milk Of Magnesia 30 Ml Oral.Susp) 30 ml PO DAILY PRN PRN Reason: Constipation Melatonin (Melatonin 3 Mg Tablet) 6 mg PO BEDTIME PRN PRN Reason: Insomnia Morphine Sulfate (Morphine Sulfate 4 Mg/Ml Cartridge) 4 mg IVPUSH Q4H PRN; Protocol PRN Reason: Pain, Severe (Pain Scale 7-10) Ondansetron HCl (Ondansetron Hcl 4 Mg/2 Ml Vial) 4 mg IVPUSH Q8H PRN PRN Reason: Nausea and Vomiting Prednisone (Prednisone 20 Mg Tablet) 40 mg PO DAILY REPLACED BY [facility] Sodium Chloride (0.9 % Sodium Chloride Flush 3 Ml Syringe) 3 ml IVFLUSH QSHIFT REPLACED BY [facility] Home Medications ?Medication ?Instructions ?Recorded ?Confirmed ?Last Taken ?Type albuterol sulfate 90 mcg/actuation 2 puff inhalation Q4-6H PRN dyspnea 05/11/24 05/11/24 Unknown History aerosol inhaler (Ventolin HFA) diclofenac sodium 1 % topical gel topical 05/11/24 05/11/24 Unknown History fluticasone 500 mcg-salmeterol 50 1 ea inhalation 05/11/24 05/11/24 Unknown History mcg/dose blistr powdr for inhalation (Advair Diskus) lidocaine 5 % topical patch patch topical 05/11/24 05/11/24 Unknown History losartan 25 mg tablet 25 mg PO QAM 05/11/24 05/11/24 Unknown History meclizine 25 mg tablet 25 mg PO TID PRN dizziness 05/11/24 05/11/24 Unknown History metformin 500 mg tablet,extended 500 mg PO 05/11/24 05/11/24 Unknown History release 24 hr montelukast 10 mg tablet 10 mg PO BEDTIME 05/11/24 05/11/24 Unknown History tizanidine 2 mg tablet 2 mg PO Q6H PRN muscle spasm 05/11/24 05/11/24 Unknown History Physical Exam 2 Vital Signs and Narrative: Vital Signs: Last Vital Signs Temp 99 F 09/26/24 18:33 Pulse 107 H 09/26/24 18:33 Resp 19 09/26/24 18:33 BP 130/91 H 09/26/24 18:33 Pulse Ox 98 09/26/24 18:33 O2 Del Method Nasal Cannula 09/26/24 18:33 O2 Flow Rate 2 09/26/24 18:33 BMI result Body Mass Index 44.8 General: AOx3, looks uncomfortable, in no acute distress Resp: Diffuse expiratory wheezing and rhonchi CVS: S1, S2, RRR GI: +BS, NT, no distention Skin: Warm, dry Neuro: Cranial nerves II-XII grossly intact bilaterally. Motor grossly intact bilaterally Extremities: No edema Psych: Appropriate affect Results Labs 09/26/24 14:49 09/26/24 14:49 Labs: Laboratory Results - last 24 hr 09/26/24 09/26/24 09/26/24 14:49 16:25 20:11 MCV 83.2 MCH 27.9 MCHC 33.6 RDW 13.1 Plt Count 271 MPV 10.3 Immature Gran % (Auto) 0.7 H Neut % (Auto) 78.2 H Lymph % (Auto) 14.5 L [place] % (Auto) 6.5 Eos % (Auto) 0.0 Baso % (Auto) 0.1 Lymph # (Auto) 2.2 [place] # (Auto) 1.0 Eos # (Auto) 0.0 Baso # (Auto) 0.0 Abs Immat Gran (auto) 0.10 H Absolute Neuts (auto) 11.6 H Absolute Nucleated RBC 0.000 Nucleated RBC % (auto) 0.0 PT 12.5 H INR 1.1 Anion Gap 17 Estim Creat Clear Calc 94.8 Estimated GFR > 60 Random Glucose 139 H Lactic Acid 1.6 Calcium 9.0 Magnesium 1.6 Total Bilirubin 0.5 AST 37 H ALT 28 Alkaline Phosphatase 92 Troponin I High Sens 7.4 B-Natriuretic Peptide 49 Total Protein 8.0 Albumin 4.0 Lipase 28 Assessment and Plan (1) Influenza: Status: Acute (2) Asthma exacerbation: Status: Acute (3) Pneumonia: Status: Acute Plan Pt is a 59-year-old female with a PMH significant for?asthma, [id number] type 2 diabetes, HTN, and migraines who presents to the ED with?shortness a breath and right lung pain. Pt will be admitted to the hospital for treatment and further evaluation of community acquired pneumonia with sepsis with concomitant asthma exacerbation in the setting of flu infection. Community-acquired pneumonia with sepsis in the setting of flu infection Diagnosed with flu 4 days ago, has been experiencing symptoms x6 days CT of chest found focal consolidation/pneumonia involving posterior segment of RUL w/ complete occlusion of posterior segment Meets sepsis criteria: Tachycardia, tachypnea, leukocytosis; lactic acid WNL Will treat with ceftriaxone and azithromycin, started 09/26/2024 Ms. Analgesics for pain management No indication for Tamiflu as symptom onset >6 days ago Titrate supplemental O2 >92, wean as tolerated Monitor respiratory status Acute asthma exacerbation Pt with wheezing and rhonchi In the setting of above Treat with Duonebs, prednisone, guaifenesin Ylx-umelzyn-rcnphnwuv type 2 diabetes Hold metformin [address] place on sliding scale insulin Diabetic diet HTN Continue losartan Anxiety Continue home meds Full Code Attending:?Dr. Bautista DVT Prophylaxis: Lovenox Pt will require a hospitalization of at least two nights for treatment of?community-acquired pneumonia with sepsis and concomitant asthma exacerbation in the setting of influenza infection. Given that pt meets sepsis criteria and has an extensive consolidation on imaging, pt require hospital level care for administration of IV antibiotics, supplemental oxygen as needed, breathing treatments, and close monitoring of respiratory status. Quality Stroke Does the patient have a stroke diagnosis?: No VTE Prior VTE?: No VTE Risk Level:: Medical - moderate - high VTE Device Contraindication: Treatment Not Indicated VTE Drug Contraindication: N/A - Med Ordered
[2024-09-26 20:53] LABS: Glucose, Whole Blood 184 mg/dL (60-115)
--- NOTE | 2024-09-26 21:03 | MHC.EDTECH ---
2000 rounding done ,vitals taken ,2100 blood sugar check ,RN Meme aware of result ,Patient was offer snacks and fluids ,Patient ate a few saltines and drank some diet zaheer amrit .
--- NOTE | 2024-09-26 21:05 | MHC.EDTECH ---
Sputum sample collected and sent to lab .
--- NOTE | 2024-09-26 21:15 | PC.NURSE ---
pt medicated with morphine iv for 10/10 lower back pain. iv tylenol completed. vitals stable and family at bedside.
[2024-09-26] MEDS: Azithromycin 500 MG in 0.9 % Sodium Chloride 250 ML 125 MG IV (21:28)
[2024-09-26] MEDS: Magnesium Sulfate/H2O 2 GM/50 ML PIGGYBACK IV (21:28)
[2024-09-26] MEDS: predniSONE 20 MG TABLET 40 MG PO (21:29)
[2024-09-26] MEDS: Enoxaparin Sodium 40 MG/0.4 ML SYRINGE SUBCUT (21:29)
[2024-09-26] MEDS: Insulin Lispro 100 UNIT/ML 3 ML VIAL SUBCUT (21:42)
[2024-09-27] VITALS (10 sets, daily range): BP systolic 122–145; BP diastolic 59–73; PULSE 64–81; RESP 13–18; TEMP 36.6–37.1; O2SAT 93–98
[2024-09-27] MEDS: Morphine Sulfate 4 MG/ML CARTRIDGE IVPUSH ×3 (05:03→22:24)
[2024-09-27 05:23] LABS: MANUAL DIFF FLAG NO
[2024-09-27 05:27] LABS: Basophils Percent Auto 0.2 % (0-2); Hematocrit 36.7 % (37.0-47.0); Hemoglobin 12.1 g/dl (12.0-16.0); Imm Gran Abs Auto 0.15 X10*3/uL (0.00-0.03); Imm Gran Pct Auto 0.8 % (0.0-0.4); Lymphocytes Absolute Auto 1.5 X10*3/uL (1.2-4.9); Lymphocytes Percent Auto 7.7 % (20-40); Mean Corpuscular Hemoglobin 28.1 pg (27.0-33.0); Mean Corpuscular Volume 85.3 fL (80.0-98.0); Mean Platelet Volume 10.6 fL (9.4-12.3); Monocytes Absolute Auto 0.8 X10*3/uL (0.1-1.2); Monocytes Percent Auto 4.2 % (2-11); Neutrophils Absolute Auto 16.5 x10*3/uL (2.0-8.3); Neutrophils Percent Auto 87.1 % (45-73); Platelet Count 208 X10*3/uL (160-400); Red Cell Distribution Width 13.1 % (11.0-16.0); White Blood Count 18.9 X10*3/uL (4.8-10.8)
[2024-09-27 05:40] LABS: Anion Gap 15 (12-20); Blood Urea Nitrogen 12 mg/dL (9-16); Calcium 8.6 mg/dL (8.4-10.2); Carbon Dioxide 19 mmol/L (22-29); Chloride 105 mmol/L (96-108); Creatinine Clr Calc Pharmacy 85.9; Estimated Glomerular Filt Rate > 60; Glucose Random 292 mg/dL (60-115); Sodium 135 mmol/L (135-145)
[2024-09-27] MEDS: Albuterol/Iprat 2.5/0.5MG 3 ML AMPUL.NEB INHALE ×4 (07:25→21:05)
[2024-09-27 07:53] LABS: Glucose, Whole Blood 238 mg/dL (60-115)
[2024-09-27] MEDS: predniSONE 20 MG TABLET 40 MG PO (08:45)
[2024-09-27] MEDS: Insulin Lispro 100 UNIT/ML 3 ML VIAL SUBCUT ×4 (08:45→22:17)
[2024-09-27] MEDS: 0.9 % Sodium Chloride Flush 3 ML SYRINGE IVFLUSH ×2 (08:46→22:29)
--- NOTE | 2024-09-27 09:39 | MHC.CM.PN ---
PATIENT IS PRIMARILY BENGALI SPEAKING. CM ASSESSMENT COMPLETED AT BEDSIDE W/ DIGITAL PHOTOGRAPHIC PRINTER ASSISTANCE. PATIENT LIVES IN AN APARTMENT W/ SON. FUNCTIONALLY INDEPENDENT. DENIES USE OF DME OR SERVICES. PCP CARLOS HELMS MD NO HCP. CM PROVIDED EDUCATION AND OFFERED ASSISTANCE. PATIENT DECLINED. DP: GOAL IS HOME SELF CARE. FAMILY TO TRANSPORT. CM WILL CONTINUE TO FOLLOW.
--- NOTE | 2024-09-27 09:52 | HO.PM.IMPN ---
Subjective Subjective Date of Service: 09/27/24 Interval History: seen and examined. daughter beside who helps translate pt reports pleuritic chest pain, R back reports malaise Review of Systems Negative except HPI/interval history. Physical Exam Vital Signs: Vital Signs: Last Vital Signs Temp 97.8 F 09/27/24 07:44 Pulse 73 09/27/24 07:44 Resp 13 09/27/24 07:44 BP 122/65 09/27/24 07:44 Pulse Ox 95 09/27/24 07:44 O2 Del Method Room Air 09/27/24 07:44 O2 Flow Rate 2 09/26/24 21:48 BMI result Body Mass Index 44.8 Const: Other: General - appears uncomfortable, in pain Cardiovascular - regular rate and rhythm, S1-S2 Lungs - rhonchi/wheezing R > L Abdomen - soft, nontender, no rebound or guarding Extremities - no edema bilaterally Neuro - awake and alert, no focal deficits Objective Data Active Medications Acetaminophen (Acetaminophen 325 Mg Tablet) 650 mg PO Q6H PRN PRN Reason: Pain, Mild 1-3,fever,headache Albuterol/Ipratropium (Albuterol/Iprat 2.5/0.5mg 3 Ml Ampul.Neb) 3 ml INHALE Q4H PRN PRN Reason: Shortness of Breath/Wheezing Albuterol/Ipratropium (Albuterol/Iprat 2.5/0.5mg 3 Ml Ampul.Neb) 3 ml INHALE RQ4H WHILE AWAKE [facility] Last Admin: 09/27/24 07:25 Dose: 3 ml Documented By: ISAC Benzonatate (Benzonatate 100 Mg Capsule) 100 mg PO TID PRN PRN Reason: Cough Calcium Carbonate (Calcium Carbonate 750 Mg Tab.Chew) 750 mg PO Q4H PRN PRN Reason: Heartburn Ceftriaxone Sodium (Ceftriaxone Sodium 1 Gm Vial) 1 gm IVPUSH Q24H [facility] Enoxaparin Sodium (Enoxaparin Sodium 40 Mg/0.4 Ml Syringe) 40 mg SUBCUT Q24H [facility] Last Admin: 09/26/24 21:29 Dose: 40 mg Documented By: SHIVANI Glucose (Glucose Gel 15 Gm Gel..Gram.) 15 gm PO Q15M PRN; Protocol PRN Reason: per Hypoglycemia Standing Ord. Guaifenesin/Dextromethorphan (Guaifenesin Dm 200/20/10 Ml 10 Ml Syrup) 10 ml PO Q4H PRN PRN Reason: Cough Azithromycin 500 mg/ Sodium (Chloride) 250 mls @ 125 mls/hr IV Q24H [facility] Last Infusion: 09/26/24 23:33 Dose: Infused Documented By: SHIVANI Dextrose (D10) 250 mls @ 750 mls/hr IV Q15M PRN; Protocol PRN Reason: per Hypoglycemia Standing Ord. Insulin Human Lispro (Insulin Lispro 100 Unit/Ml 3 Ml Vial) 0 unit SUBCUT QIDACHS [facility]; Protocol Last Admin: 09/27/24 08:45 Dose: 4 unit Documented By: NISH Magnesium Hydroxide (Milk Of Magnesia 30 Ml Oral.Susp) 30 ml PO DAILY PRN PRN Reason: Constipation Melatonin (Melatonin 3 Mg Tablet) 6 mg PO BEDTIME PRN PRN Reason: Insomnia Morphine Sulfate (Morphine Sulfate 4 Mg/Ml Cartridge) 4 mg IVPUSH Q4H PRN; Protocol PRN Reason: Pain, Severe (Pain Scale 7-10) Last Admin: 09/27/24 05:03 Dose: 4 mg Documented By: SHIVANI Ondansetron HCl (Ondansetron Hcl 4 Mg/2 Ml Vial) 4 mg IVPUSH Q8H PRN PRN Reason: Nausea and Vomiting Last Admin: 09/26/24 21:47 Dose: 4 mg Documented By: SHIVANI Prednisone (Prednisone 20 Mg Tablet) 40 mg PO DAILY [facility] Last Admin: 09/27/24 08:45 Dose: 40 mg Documented By: NISH Sodium Chloride (0.9 % Sodium Chloride Flush 3 Ml Syringe) 3 ml IVFLUSH QSHIFT [facility] Last Admin: 09/27/24 08:46 Dose: 3 ml Documented By: NISH Labs 09/27/24 04:46 09/27/24 04:46 Labs: Laboratory Results - last 24 hr 09/26/24 09/26/24 09/26/24 14:49 16:25 20:11 MCV 83.2 MCH 27.9 MCHC 33.6 RDW 13.1 Plt Count 271 MPV 10.3 Immature Gran % (Auto) 0.7 H Neut % (Auto) 78.2 H Lymph % (Auto) 14.5 L [place] % (Auto) 6.5 Eos % (Auto) 0.0 Baso % (Auto) 0.1 Lymph # (Auto) 2.2 [place] # (Auto) 1.0 Eos # (Auto) 0.0 Baso # (Auto) 0.0 Abs Immat Gran (auto) 0.10 H Absolute Neuts (auto) 11.6 H Absolute Nucleated RBC 0.000 Nucleated RBC % (auto) 0.0 PT 12.5 H INR 1.1 Anion Gap 17 Estim Creat Clear Calc 94.8 Estimated GFR > 60 POC Glucose Random Glucose 139 H Lactic Acid 1.6 Calcium 9.0 Magnesium 1.6 Total Bilirubin 0.5 AST 37 H ALT 28 Alkaline Phosphatase 92 Troponin I High Sens 7.4 B-Natriuretic Peptide 49 Total Protein 8.0 Albumin 4.0 Lipase 28 09/26/24 09/27/24 09/27/24 20:46 04:46 07:47 MCV 85.3 MCH 28.1 MCHC 33.0 RDW 13.1 Plt Count 208 MPV 10.6 Immature Gran % (Auto) 0.8 H Neut % (Auto) 87.1 H Lymph % (Auto) 7.7 L [place] % (Auto) 4.2 Eos % (Auto) 0.0 Baso % (Auto) 0.2 Lymph # (Auto) 1.5 [place] # (Auto) 0.8 Eos # (Auto) 0.0 Baso # (Auto) 0.0 Abs Immat Gran (auto) 0.15 H Absolute Neuts (auto) 16.5 H Absolute Nucleated RBC 0.000 Nucleated RBC % (auto) 0.0 PT INR Anion Gap 15 Estim Creat Clear Calc 85.9 Estimated GFR > 60 POC Glucose 184 H 238 H Random Glucose 292 H Lactic Acid Calcium 8.6 Magnesium Total Bilirubin AST ALT Alkaline Phosphatase Troponin I High Sens B-Natriuretic Peptide Total Protein Albumin Lipase Microbiology Microbiology Results: Microbiology 09/26/24 21:00 Gram Stain - Final Sputum - Expectorated Sputum Culture - Preliminary Culture in progress. Assessment and Plan (1) Pneumonia: Status: Acute Plan Pt is a 59-year-old female with a PMH significant for?asthma, rfv-hlyzyji-[id number] type 2 diabetes, HTN, and migraines who presents to the ED with?shortness a breath and right lung pain. Pt will be admitted to the hospital for treatment and further evaluation of community acquired pneumonia with sepsis with concomitant asthma exacerbation in the setting of flu infection. Community-acquired pneumonia with sepsis Recently diagnosed influenza continue rocephin/zithromax ask pulm input re: occulusion of posterior segment IV analgesics Acute asthma exacerbation Pt with wheezing and rhonchi steroids + updrafts [id number]-[id number] type 2 diabetes Hold metformin Will place on sliding scale insulin Diabetic diet HTN Continue losartan Anxiety Continue home meds Full Code DVT Prophylaxis: Lovenox reason for continued hospitalization: pt with significant infiltrates + occulusion of R posterior segent of bronchus, requiring IV abx + steroids and pulmonary evaluation. Quality Stroke Does the patient have a stroke diagnosis?: No VTE Prior VTE?: No VTE Risk Level:: Medical - moderate - high VTE Device Contraindication: Treatment Not Indicated VTE Drug Contraindication: N/A - Med Ordered
[2024-09-27] MEDS: ondansetron HCL 4 MG/2 ML VIAL IVPUSH ×2 (10:47→22:24)
--- NOTE | 2024-09-27 10:59 | PHA.MEDREC ---
Pharmacy Consult ? Medication Reconciliation Pharmacy has completed the medication reconciliation. Spoke to daughter who gave list of medications
[2024-09-27 11:55] LABS: Glucose, Whole Blood 210 mg/dL (60-115)
[2024-09-27] MEDS: Benzonatate 100 MG CAPSULE PO (12:01)
--- NOTE | 2024-09-27 14:26 | PM.CNPUL ---
History of Present Illness History of Present Illness Consult date: 09/27/24 Chief complaint: dyspnea Narrative: This is an in patient [pulmonary consultation.The patient is a 59-year-old female with a PMH significant for?asthma, tqq-pizmrho-jzbxonclc type 2 diabetes, HTN, and migraines who presents to the ED with?shortness a breath and right lung pain. Pt previously presented to the ED 4 days prior on 09/22 where she had labs drawn, though was never seen by a provider as she left from the waiting room due to heavy volume. Pt has been experiencing SOB, low-grade fever, chills, and cough x6 days. Tested positive for flu. Patient's symptoms worsened and she began experiencing right sided chest/lung pain x3 days, and N/V/D x2 days. Also complains of headache. Denies chest pain/pressure. No abdominal pain. Of note, patient's daughter is at bedside who reports her mother has severe anxiety and she will likely need to stay with her at night. Reports previous hospitalization she was called at 04:00 to come to the hospital to calm her down. The patient had a CTA personally reviewed by me demonstrating pneumonitis, tree in budding and RUL posterior segment consolidation. Review of Systems Constitutional: Constitutional: Reports no additional constitutional complaints, Denies chills, Denies fever(s) and Denies night sweats Eyes: Eyes: Reports no additional eye complaints, Denies blurry vision, Denies change in vision, Denies diplopia, Denies eye discharge, Denies loss of vision and Denies eye pain ENT: Denies dizziness Cardiovascular: Cardiovascular: Reports no additional cardiovascular complaints, Reports chest pain, Denies lightheadedness, Denies Loss of Consciousness and Denies dyspnea Respiratory: Respiratory: Reports no additional respiratory complaints and Denies dyspnea Gastrointestinal: Gastrointestinal: Reports no additional gastrointestinal complaints, Denies abdominal pain, Denies melena, Denies hematochezia, Denies change in bowel habits, Denies change in stool character, Reports nausea and Reports vomiting Genitourinary: Genitourinary: Denies hematuria, Denies urinary frequency, Denies dysuria, Denies urinary incontinence, Denies urinary hesitancy and Denies urinary urgency Musculoskeletal: Musculoskeletal: Reports no additional musculoskeletal complaints, Denies numbness and Denies tingling Neurologic: Denies dizziness, Denies loss of vision, Denies numbness and Denies tingling Psychiatric: Psychiatric: Reports no additional psychiatric complaints Endocrine: Endocrine: Reports no additional endocrine complaints Hematologic/Lymphatic: Hematologic/Lymphatic: Reports no additional hematologic/lymphatic complaints Allergic/Immunologic: Allergic/Immunologic: Reports no additional allergic/immunologic complaints [facility] Past Medical History Medical History (Updated 09/27/24 @ 14:29 by Jasson Castillo MD) Anxiety Insulin dependent type 2 diabetes mellitus Asthma Surgical History Surgical History Hx of section Social History Social History Household Members: Children Housing: Apartment Do you presently have visiting nurse or other home services: No Patient Tobacco Use Status: Never used Tobacco service: No Current occupational status: employed Current occupation: [employer] Meds Allergies Allergy/AdvReac Type Severity Reaction Status Date / Time prochlorperazine Allergy Anaphylaxis Verified 09/26/24 14:28 [From Compazine] Active Medications: Current Medications Acetaminophen (Acetaminophen 325 Mg Tablet) 650 mg PO Q6H PRN PRN Reason: Pain, Mild 1-3,fever,headache Albuterol/Ipratropium (Albuterol/Iprat 2.5/0.5mg 3 Ml Ampul.Neb) 3 ml INHALE Q4H PRN PRN Reason: Shortness of Breath/Wheezing Albuterol/Ipratropium (Albuterol/Iprat 2.5/0.5mg 3 Ml Ampul.Neb) 3 ml INHALE RQ4H WHILE AWAKE [facility] Last Admin: 09/27/24 12:17 Dose: 3 ml Benzonatate (Benzonatate 100 Mg Capsule) 100 mg PO TID PRN PRN Reason: Cough Last Admin: 09/27/24 12:01 Dose: 100 mg Calcium Carbonate (Calcium Carbonate 750 Mg Tab.Chew) 750 mg PO Q4H PRN PRN Reason: Heartburn Ceftriaxone Sodium (Ceftriaxone Sodium 1 Gm Vial) 1 gm IVPUSH Q24H [facility] Enoxaparin Sodium (Enoxaparin Sodium 40 Mg/0.4 Ml Syringe) 40 mg SUBCUT Q24H [facility] Last Admin: 09/26/24 21:29 Dose: 40 mg Glucose (Glucose Gel 15 Gm Gel..Gram.) 15 gm PO Q15M PRN; Protocol PRN Reason: per Hypoglycemia Standing Ord. Guaifenesin/Dextromethorphan (Guaifenesin Dm 200/20/10 Ml 10 Ml Syrup) 10 ml PO Q4H PRN PRN Reason: Cough Azithromycin 500 mg/ Sodium (Chloride) 250 mls @ 125 mls/hr IV Q24H [facility] Last Infusion: 09/26/24 23:33 Dose: Infused Dextrose (D10) 250 mls @ 750 mls/hr IV Q15M PRN; Protocol PRN Reason: per Hypoglycemia Standing Ord. Insulin Human Lispro (Insulin Lispro 100 Unit/Ml 3 Ml Vial) 0 unit SUBCUT QIDACHS [facility]; Protocol Last Admin: 09/27/24 12:01 Dose: 4 unit Magnesium Hydroxide (Milk Of Magnesia 30 Ml Oral.Susp) 30 ml PO DAILY PRN PRN Reason: Constipation Melatonin (Melatonin 3 Mg Tablet) 6 mg PO BEDTIME PRN PRN Reason: Insomnia Morphine Sulfate (Morphine Sulfate 4 Mg/Ml Cartridge) 4 mg IVPUSH Q4H PRN; Protocol PRN Reason: Pain, Severe (Pain Scale 7-10) Last Admin: 09/27/24 10:47 Dose: 4 mg Ondansetron HCl (Ondansetron Hcl 4 Mg/2 Ml Vial) 4 mg IVPUSH Q8H PRN PRN Reason: Nausea and Vomiting Last Admin: 09/27/24 10:47 Dose: 4 mg Prednisone (Prednisone 20 Mg Tablet) 40 mg PO DAILY [facility] Last Admin: 09/27/24 08:45 Dose: 40 mg Sodium Chloride (0.9 % Sodium Chloride Flush 3 Ml Syringe) 3 ml IVFLUSH QSHIFT [facility] Last Admin: 09/27/24 08:46 Dose: 3 ml Home Medications ?Medication ?Instructions ?Recorded ?Confirmed ?Last Taken ?Type albuterol sulfate 90 mcg/actuation 2 puff inhalation Q4-6H PRN dyspnea 05/11/24 09/27/24 Unknown History aerosol inhaler (Ventolin HFA) fluticasone 500 mcg-salmeterol 50 1 ea inhalation BID 05/11/24 09/27/24 Unknown History mcg/dose blistr powdr for inhalation (Advair Diskus) losartan 25 mg tablet 25 mg PO QAM 05/11/24 09/27/24 Unknown History meclizine 25 mg tablet 25 mg PO TID PRN dizziness 05/11/24 09/27/24 Unknown History metformin 500 mg tablet,extended 500 mg PO BID 05/11/24 09/27/24 Unknown History release 24 hr montelukast 10 mg tablet 10 mg PO BEDTIME 05/11/24 09/27/24 Unknown History loratadine 10 mg tablet 10 mg PO DAILY 09/27/24 09/27/24 Unknown History Physical Exam Vital Signs: Vital Signs: Last Vital Signs Temp 97.8 F 09/27/24 07:44 Pulse 70 09/27/24 12:22 Resp 18 09/27/24 12:22 BP 122/65 09/27/24 07:44 Pulse Ox 95 09/27/24 07:44 O2 Del Method Room Air 09/27/24 07:44 O2 Flow Rate 2 09/26/24 21:48 BMI result Body Mass Index 44.8 Const: General: comfortable HEENT: Head: Yes atraumatic Neck: Neck: Yes supple Chest: Chest palpation & inspection: normal inspection of the chest Resp: Effort & Inspection: normal respiratory effort Auscultation: rhonchi, wheezes and diminished lung sounds Cardio: Heart sounds: S1 normal heart sound present and S2 normal heart sound present GI: Palpation (GI): Soft to palpation Skin: General skin exam: no rashes or lesions noted Extrem: General: Yes no clubbing, cyanosis or edema Results Laboratory Findings 09/27/24 04:46 09/27/24 04:46 ABG, PT/INR, D-dimer: PT/INR, D-dimer PT 12.5 SEC (10.9-12.4) H 09/26/24 14:49 INR 1.1 (0.9-1.1) 09/26/24 14:49 Abnormal lab findings: Abnormal Labs 09/26/24 09/26/24 09/27/24 14:49 20:46 04:46 WBC 14.9 H 18.9 H Hct 36.7 L Immature Gran % (Auto) 0.7 H 0.8 H Neut % (Auto) 78.2 H 87.1 H Lymph % (Auto) 14.5 L 7.7 L Abs Immat Gran (auto) 0.10 H 0.15 H Absolute Neuts (auto) 11.6 H 16.5 H PT 12.5 H Carbon Dioxide 19 L 19 L POC Glucose 184 H Random Glucose 139 H 292 H AST 37 H 09/27/24 09/27/24 07:47 11:50 WBC Hct Immature Gran % (Auto) Neut % (Auto) Lymph % (Auto) Abs Immat Gran (auto) Absolute Neuts (auto) PT Carbon Dioxide POC Glucose 238 H 210 H Random Glucose AST Microbiology: Microbiology 09/26/24 21:00 Sputum - Expectorated Gram Stain - Final 09/26/24 21:00 Sputum - Expectorated Sputum Culture - Preliminary Culture in progress. Assessment and Plan (1) Asthma exacerbation: Qualifiers: Asthma severity: moderate Asthma persistence: persistent Qualified Code(s): J45.41 - Moderate persistent asthma with (acute) exacerbation Status: Acute (2) Influenza: Status: Acute (3) Pneumonia: Qualifiers: Pneumonia type: due to unspecified organism Laterality: right Lung location: upper lobe of lung Qualified Code(s): J18.9 - Pneumonia, unspecified organism Status: Acute Plan continue CTX start Docycycline respiratory therapy Tamiflu Likely benefit from solumdrol Serial imaging Procedures Date of Service Date of Service: 09/27/24
[2024-09-27] MEDS: Doxycycline Hyclate 100 MG in 0.9 % Sodium Chloride 250 ML 166.67 MG IV (15:05)
[2024-09-27 16:10] LABS: Glucose, Whole Blood 297 mg/dL (60-115)
[2024-09-27] MEDS: cefTRIAXone sodium 1 GM VIAL IVPUSH (16:55)
[2024-09-27 20:19] LABS: Glucose, Whole Blood 282 mg/dL (60-115)
[2024-09-27 21:13] LABS: Appearance Urine Clear; Color Urine Yellow; Glucose Urine UA 500 mg/dL (Negative); Leukocyte Esterase Urine Negative (Negative); Nitrite Urine Negative (Negative); Specific Gravity - Urine >= 1.030 (1.005-1.025); UMIC TRIGGER UACC YES; Urine Blood Small (1+) (Negative); Urine Ketones 15 mg/dL (Negative); Urine Protein 100 (2+) mg/dL (Neg-Trace)
[2024-09-27 21:45] LABS: Bacteria Urine None Seen (None Seen); Hyaline Casts Urine 0-2 /LPF (0-2); RBC Urine 0-2 /HPF (0-2); WBC Urine 0-5 /HPF (0-5)
[2024-09-28] VITALS (12 sets, daily range): BP systolic 114–143; BP diastolic 46–64; PULSE 71–99; RESP 16–22; TEMP 36.1–36.5; O2SAT 92–99
[2024-09-28] MEDS: Doxycycline Hyclate 100 MG in 0.9 % Sodium Chloride 250 ML 166.67 MG IV ×2 (02:42→13:26)
[2024-09-28] MEDS: Morphine Sulfate 4 MG/ML CARTRIDGE IVPUSH (04:36)
[2024-09-28] MEDS: HYDROmorphone HCl 1 MG/ML SYRINGE IVPUSH (05:31)
[2024-09-28 07:31] LABS: Hematocrit 35.1 % (37.0-47.0); Hemoglobin 11.2 g/dl (12.0-16.0); Mean Corpuscular HGB Conc 31.9 g/dl (31.0-35.0); Mean Corpuscular Hemoglobin 27.4 pg (27.0-33.0); Mean Corpuscular Volume 85.8 fL (80.0-98.0); Platelet Count 212 X10*3/uL (160-400); Red Blood Count 4.09 X10*6/uL (4.20-5.50); Red Cell Distribution Width 13.2 % (11.0-16.0); White Blood Count 18.4 X10*3/uL (4.8-10.8)
[2024-09-28 07:46] LABS: Anion Gap 13 (12-20); Blood Urea Nitrogen 15 mg/dL (9-16); Calcium 8.9 mg/dL (8.4-10.2); Carbon Dioxide 23 mmol/L (22-29); Chloride 104 mmol/L (96-108); Creatinine Clr Calc Pharmacy 86.9; Estimated Glomerular Filt Rate > 60; Glucose Random 222 mg/dL (60-115); Potassium 3.6 mmol/L (3.3-5.1); Sodium 136 mmol/L (135-145)
[2024-09-28 07:56] LABS: Glucose, Whole Blood 178 mg/dL (60-115)
[2024-09-28] MEDS: Albuterol/Iprat 2.5/0.5MG 3 ML AMPUL.NEB INHALE ×4 (08:02→19:30)
[2024-09-28] MEDS: predniSONE 20 MG TABLET 40 MG PO (08:19)
[2024-09-28] MEDS: Insulin Lispro 100 UNIT/ML 3 ML VIAL SUBCUT ×4 (08:19→20:07)
[2024-09-28] MEDS: 0.9 % Sodium Chloride Flush 3 ML SYRINGE IVFLUSH ×3 (08:21→20:07)
[2024-09-28] MEDS: ondansetron HCL 4 MG/2 ML VIAL IVPUSH ×2 (09:38→21:26)
[2024-09-28 11:18] LABS: Glucose, Whole Blood 217 mg/dL (60-115)
--- NOTE | 2024-09-28 11:57 | P.PNIM_ITS ---
Subjective Subjective Date of Service: 09/28/24 Interval History: seen and examined this AM daughter bedside who translates pt still feeling generalized malaise; pleurtic cp improving cough still persists still with dyspnea on exertion Review of Systems Negative except HPI/interval history. Physical Exam 2 Vital Signs: Vital Signs: Last Vital Signs Temp 97.7 F 09/28/24 07:48 Pulse 99 09/28/24 11:23 Resp 18 09/28/24 11:23 BP 114/46 L 09/28/24 07:48 Pulse Ox 92 09/28/24 07:48 O2 Del Method Room Air 09/28/24 07:48 O2 Flow Rate 2 09/26/24 21:48 BMI result Body Mass Index 44.8 Const: Other: General - no acute distress, appears comfortable Cardiovascular - regular rate and rhythm, S1-S2 Lungs - rales R side Abdomen - soft, nontender, no rebound or guarding Extremities - no edema bilaterally Neuro - awake and alert, no focal deficits Objective Data Active Medications Acetaminophen (Acetaminophen 325 Mg Tablet) 650 mg PO Q6H PRN PRN Reason: Pain, Mild 1-3,fever,headache Albuterol/Ipratropium (Albuterol/Iprat 2.5/0.5mg 3 Ml Ampul.Neb) 3 ml INHALE Q4H PRN PRN Reason: Shortness of Breath/Wheezing Albuterol/Ipratropium (Albuterol/Iprat 2.5/0.5mg 3 Ml Ampul.Neb) 3 ml INHALE RQ4H WHILE AWAKE [facility] Last Admin: 09/28/24 11:22 Dose: 3 ml Documented By: YAYO Benzonatate (Benzonatate 100 Mg Capsule) 100 mg PO TID PRN PRN Reason: Cough Last Admin: 09/27/24 12:01 Dose: 100 mg Documented By: ESTRELLA Calcium Carbonate (Calcium Carbonate 750 Mg Tab.Chew) 750 mg PO Q4H PRN PRN Reason: Heartburn Ceftriaxone Sodium (Ceftriaxone Sodium 1 Gm Vial) 1 gm IVPUSH Q24H [facility] Last Admin: 09/27/24 16:55 Dose: 1 gm Documented By: ESTRELLA Enoxaparin Sodium (Enoxaparin Sodium 40 Mg/0.4 Ml Syringe) 40 mg SUBCUT Q24H [facility] Last Admin: 09/26/24 21:29 Dose: 40 mg Documented By: SHIVANI Glucose (Glucose Gel 15 Gm Gel..Gram.) 15 gm PO Q15M PRN; Protocol PRN Reason: per Hypoglycemia Standing Ord. Guaifenesin/Dextromethorphan (Guaifenesin Dm 200/20/10 Ml 10 Ml Syrup) 10 ml PO Q4H PRN PRN Reason: Cough Dextrose (D10) 250 mls @ 750 mls/hr IV Q15M PRN; Protocol PRN Reason: per Hypoglycemia Standing Ord. Doxycycline Hyclate 100 mg/ (Sodium Chloride) 250 mls @ 166.67 mls/hr IV Q12H [facility] Last Infusion: 09/28/24 04:12 Dose: Infused Documented By: SILVIO Insulin Human Lispro (Insulin Lispro 100 Unit/Ml 3 Ml Vial) 0 unit SUBCUT QIDACHS [facility]; Protocol Last Admin: 09/28/24 08:19 Dose: 2 unit Documented By: ÁNGEL Magnesium Hydroxide (Milk Of Magnesia 30 Ml Oral.Susp) 30 ml PO DAILY PRN PRN Reason: Constipation Melatonin (Melatonin 3 Mg Tablet) 6 mg PO BEDTIME PRN PRN Reason: Insomnia Morphine Sulfate (Morphine Sulfate 4 Mg/Ml Cartridge) 4 mg IVPUSH Q4H PRN; Protocol PRN Reason: Pain, Severe (Pain Scale 7-10) Last Admin: 09/28/24 04:36 Dose: 4 mg Documented By: SILVIO Ondansetron HCl (Ondansetron Hcl 4 Mg/2 Ml Vial) 4 mg IVPUSH Q8H PRN PRN Reason: Nausea and Vomiting Last Admin: 09/28/24 09:38 Dose: 4 mg Documented By: ÁNGEL Oseltamivir Phosphate (Oseltamivir Phosphate 75 Mg Capsule) 75 mg PO Q12H [facility] Stop: 10/02/24 06:01 Last Admin: 09/28/24 05:19 Dose: Not Given Documented By: SILVIO Non-Admin Reason: Patient Refused Prednisone (Prednisone 20 Mg Tablet) 40 mg PO DAILY [facility] Last Admin: 09/28/24 08:19 Dose: 40 mg Documented By: ÁNGEL Sodium Chloride (0.9 % Sodium Chloride Flush 3 Ml Syringe) 3 ml IVFLUSH QSHIFT [facility] Last Admin: 09/28/24 08:21 Dose: 3 ml Documented By: CELIANM Labs 09/28/24 05:15 09/28/24 05:15 Labs: Laboratory Results - last 24 hr 09/27/24 09/27/24 09/27/24 16:04 19:45 20:01 MCV MCH MCHC RDW Plt Count MPV Absolute Nucleated RBC Nucleated RBC % (auto) Anion Gap Estim Creat Clear Calc Estimated GFR POC Glucose 297 H 282 H Random Glucose Calcium Urine Color Yellow Urine Appearance Clear Urine pH 6.0 Ur Specific [place] >= 1.030 H Urine Protein 100 (2+) H Urine Glucose (UA) 500 H Urine Ketones 15 Urine Blood Small (1+) H Urine Nitrite Negative Ur Leukocyte Esterase Negative Urine RBC 0-2 Urine WBC 0-5 Ur Squamous Epith Cells 6-10 Urine Bacteria None Seen Hyaline Casts 0-2 09/28/24 09/28/24 09/28/24 05:15 07:51 11:14 MCV 85.8 MCH 27.4 MCHC 31.9 RDW 13.2 Plt Count 212 MPV 11.0 Absolute Nucleated RBC 0.000 Nucleated RBC % (auto) 0.0 Anion Gap 13 Estim Creat Clear Calc 86.9 Estimated GFR > 60 POC Glucose 178 H 217 H Random Glucose 222 H Calcium 8.9 Urine Color Urine Appearance Urine pH Ur Specific [place] Urine Protein Urine Glucose (UA) Urine Ketones Urine Blood Urine Nitrite Ur Leukocyte Esterase Urine RBC Urine WBC Ur Squamous Epith Cells Urine Bacteria Hyaline Casts Microbiology Microbiology Results: Microbiology 09/26/24 21:00 Gram Stain - Final Sputum - Expectorated Sputum Culture - Preliminary Staphylococcus aureus 09/26/24 16:33 Blood Culture - Preliminary Blood - Venous No growth after 24 hours. 09/26/24 16:25 Blood Culture - Preliminary Blood - Venous No growth after 24 hours. Assessment and Plan (1) Pneumonia: Status: Acute Plan Pt is a 59-year-old female with a PMH significant for?asthma, bzj-wlculax-ttitbyhyv type 2 diabetes, HTN, and migraines who presents to the ED with?shortness a breath and right lung pain. Pt will be admitted to the hospital for treatment and further evaluation of community acquired pneumonia with sepsis with concomitant asthma exacerbation in the setting of flu infection. Community-acquired pneumonia with sepsis Recently diagnosed influenza continue rocephin, azithromycin changed to doxy per pulm recs pulm input appreciated - abx change as above; also recs for tamiflu but pt declines med (will d/c) Pleuritic cp due to above taper IV analgesics in anticipation of d/c next 24 hours constipation bowel regime Acute asthma exacerbation Pt with wheezing and rhonchi steroids + updrafts Jes-kvspmxa-ltrigspnd type 2 diabetes Hold metformin Will [address] on sliding scale insulin Diabetic diet HTN Continue losartan Anxiety Continue home meds Full Code DVT Prophylaxis: Lovenox reason for continued hospitalization: slowly improving, still with elevated wbc, transition from IV to oral analgesics Quality Stroke Does the patient have a stroke diagnosis?: No VTE Prior VTE?: No VTE Risk Level:: Medical - moderate - high VTE Device Contraindication: Treatment Not Indicated VTE Drug Contraindication: N/A - Med Ordered
[2024-09-28] MEDS: Milk of Magnesia 30 ML ORAL.SUSP PO (12:04)
[2024-09-28] MEDS: cefTRIAXone sodium 1 GM VIAL IVPUSH (15:13)
[2024-09-28 16:20] LABS: Glucose, Whole Blood 333 mg/dL (60-115)
[2024-09-28 19:56] LABS: Glucose, Whole Blood 363 mg/dL (60-115)
[2024-09-28] MEDS: oxyCODONE HCl Immed Release 5 MG TABLET PO (21:27)
[2024-09-28] MEDS: Benzonatate 100 MG CAPSULE PO (21:35)
[2024-09-29] MEDS: Doxycycline Hyclate 100 MG in 0.9 % Sodium Chloride 250 ML 166.67 MG IV (01:29)
[2024-09-29 03:03] VITALS: BP 141/65; PULSE 69; RESP 16; TEMP 36; O2SAT 97
[2024-09-29 07:07] VITALS: PULSE 69; RESP 16; O2SAT 96
[2024-09-29] MEDS: Albuterol/Iprat 2.5/0.5MG 3 ML AMPUL.NEB INHALE ×2 (07:07→11:18)
[2024-09-29 07:24] VITALS: BP 135/63; PULSE 76; RESP 16; TEMP 36.2; O2SAT 95
[2024-09-29 07:41] LABS: Glucose, Whole Blood 136 mg/dL (60-115)
[2024-09-29] MEDS: predniSONE 20 MG TABLET 40 MG PO (08:01)
[2024-09-29] MEDS: 0.9 % Sodium Chloride Flush 3 ML SYRINGE IVFLUSH (08:02)
[2024-09-29 11:18] VITALS: PULSE 76; RESP 16; O2SAT 95
[2024-09-29 11:30] LABS: Glucose, Whole Blood 290 mg/dL (60-115)
[2024-09-29] MEDS: Insulin Lispro 100 UNIT/ML 3 ML VIAL SUBCUT (11:40)
--- NOTE | 2024-09-29 11:46 | PM.DS ---
DS: Providers Provider Date of Service: 09/29/24 Date of admission: 09/26/24 19:47 Date of discharge: 09/29/24 Primary care physician: Kaity Martinez MD Consults: 09/27/24 07:41 Consult to Pulmonology Routine Consulting Provider: [facility] [place] Pulmonology Services Reason for consultation: pneumonia / occulsion of posterior R upper lobe bronchus DS: Diagnosis Discharge Diagnosis (1) Pneumonia: Status: Acute DS: Summary Hospital Course Hospital Course: History and physical as per admitting provider. Pt is a 59-year-old female with a PMH significant for?asthma, ptf-ptjmtry-nvgzhcjij type 2 diabetes, HTN, and migraines who presents to the ED with?shortness a breath and right lung pain. Pt previously presented to the ED 4 days prior on 09/22 where she had labs drawn, though was never seen by a provider as she left from the waiting room due to heavy volume. Pt has been experiencing SOB, low-grade fever, chills, and cough x6 days. Tested positive for flu. Patient's symptoms worsened and she began experiencing right sided chest/lung pain x3 days, and N/V/D x2 days. Also complains of headache. Denies chest pain/pressure. No abdominal pain. Of note, patient's daughter is at bedside who reports her mother has severe anxiety and she will likely need to stay with her at night. Reports previous hospitalization she was called at 04:00 to come to the hospital to calm her down.I n the ED pt with low-grade temp of 100.4 degrees, tachycardic up to 108, tachypneic up to 22, and hypertensive as high as 154/76. Labs were significant for leukocytosis of 14.9, otherwise grossly unremarkable and around baseline for pt. Stable H&H. No significant electrolyte abnormalities. Renal and hepatic function baseline. Lactic acid WNL. BNP WNL. CXR showed 4.2 cm round mass in the right upper lung field concerning for neoplasm. CTA of chest found focal consolidation/pneumonia involving the posterior segment of the right upper lobe with complete occlusion of posterior segment of right upper lobe. EKG demonstrated sinus tachycardia of 109 without signs of significant ST elevations or depressions. Pt was treated with ondansetron, morphine, Dilaudid, Tylenol, and ceftriaxone. Pt will be admitted to the hospital for treatment and further evaluation of community acquired pneumonia with sepsis with concomitant asthma exacerbation in the setting of flu infection. 59-year-old woman treated for sepsis secondary to community-acquired pneumonia, recently diagnosed with influenza A. Treated with IV Rocephin and azithromycin and changed to doxycycline per pulmonology recommendation. Tamiflu was ordered for influenza a however patient declined to continue. She had some noted pleuritic chest pain likely secondary to the pneumonia. She has a history of asthma and was noted to have a mild acute asthma exacerbation as well again likely secondary to the pneumonia. Patient did have some wheezing and rhonchi noted and was treated with steroids and updrafts. She will be discharged home with steroid taper and a few more days of antibiotics for the pneumonia. History of constipation. Continue bowel regimen at home Diabetes mellitus type 2. Continue home medications Hypertension. Continue losartan Anxiety. Continue home medications Time Attestation Discharge Coordination Time (in mins): 38 Quality: Safe Use of Opioids Does Pt have an Active Cancer Diagnosis on the Problem List?: No Quality: Stroke Does the patient have a stroke diagnosis?: No Physical Exam Vital Signs: Vital Signs: Last Vital Signs Temp 97.1 F 09/29/24 07:24 Pulse 76 09/29/24 11:18 Resp 16 09/29/24 11:18 BP 135/63 09/29/24 07:24 Pulse Ox 95 09/29/24 07:24 O2 Del Method Room Air 09/29/24 07:24 O2 Flow Rate 2 09/26/24 21:48 BMI result Body Mass Index 44.8 Appearing in no acute distress head is normocephalic atraumatic eyes pupils are PERRLA sclera is anicteric mouth throat mucous membranes are intact and moist neck is supple no lymphadenopathy, no JVD noted lung sounds mild expiratory wheezing heart regular rate rhythm, clear S1, S2 positive bowel sounds, abdomen is soft, nontender neuro patient is alert x3, no focal deficits DS: Data Data Completed and Pending Labs on day of discharge: Laboratory Results - last 24 hr 09/28/24 09/28/24 09/29/24 16:16 19:46 07:28 POC Glucose 333 H 363 H* 136 H 09/29/24 11:21 POC Glucose 290 H Preliminary micro results at discharge 09/26/24 16:33 Blood Culture - Preliminary Blood - Venous No growth after 48 hours. 09/26/24 16:25 Blood Culture - Preliminary Blood - Venous No growth after 48 hours. Discharge Plan Discharge Anticipated Discharge Date/Time: 09/29/24 11:42 Patient Disposition: Home, Self-Care Discharge Diagnosis: Community-acquired pneumonia Sepsis Acute asthma exacerbation Referrals: Kaity Martinez MD [Primary Care Provider] - 1 Week Discharge Medications: New benzonatate 100 mg Capsule 100 mg PO TID PRN (Reason: Cough) Qty: 9 0RF prednisone 10 mg tablet See Taper PO DIRECTED Qty: 30 0RF Taper: Prednisone 40 mg daily for 3 Days and 0 Hour 30 mg daily for 3 Days and 0 Hour 20 mg daily for 3 Days and 0 Hour 10 mg daily for 3 Days and 0 Hour Rx Instructions: see taper instructions cefuroxime axetil 500 mg tablet 500 mg PO BID Qty: 6 0RF doxycycline hyclate 100 mg tablet 100 mg PO BID Qty: 6 0RF Continued loratadine 10 mg Tablet 10 mg PO DAILY albuterol sulfate [Ventolin HFA] 90 mcg/actuation HFA aerosol inhaler 2 puff inhalation Q4-6H PRN (Reason: dyspnea) metformin 500 mg tablet extended release 24 hr 500 mg PO BID losartan 25 mg tablet 25 mg PO QAM fluticasone propion-salmeterol [Advair Diskus] 500-50 mcg/dose blister with device 1 ea inhalation BID meclizine 25 mg tablet 25 mg PO TID PRN (Reason: dizziness) montelukast 10 mg tablet 10 mg PO BEDTIME Discharge Orders: Discharge Order (Routine); Ordered 09/29/24 Ordered By: Salina Castillo Diet: Advance to usual diet Activity on Discharge: As tolerated Stand Alone Forms: Patient Portal Discharge page Print Language: Luxembourgish Care Plan Goals: Complete prednisone taper and antibiotics Health Concerns: Community-acquired pneumonia Sepsis Acute asthma exacerbation Plan of Treatment: Follow-up with primary care provider as needed Take all medications as prescribed Assessment: See discharge summary
--- NOTE | 2024-09-29 12:18 | MHC.CM.PN ---
Patient is discharged to home today self care. She has arranged for transportation home.
== END 2024-09-29 12:13 | disposition home or self-care (01) | DRG 720 ==
LOC: HO.ED 17:12 → HO.EDOVER 19:57 → HO.S3 09-27 05:30
PROVIDERS: Family Medicine; Internal Medicine; Physician Assistant Medical; Admitting Provider Student in an Organized Health Care Education/Training Program; Emergency Provider Internal Medicine; PCP Family Medicine; Visit Provider Nurse Practitioner Acute Care
DX: A41.9 Sepsis, unspecified organism (principal); J10.00 Influenza due to other identified influenza virus with unspecified type of pneumonia; J45.41 Moderate persistent asthma with (acute) exacerbation; F41.9 Anxiety disorder, unspecified; K59.00 Constipation, unspecified; E11.9 Type 2 diabetes mellitus without complications; Z79.51 Long term (current) use of inhaled steroids; Z79.84 Long term (current) use of oral hypoglycemic drugs; Z79.899 Other long term (current) drug therapy
CPT/HCPCS: 36415; 71046; 71260; 80048; 80053; 81001; 82947; 83605; 83690; 83735; 83880; 84484; 85025; 85027; 85610; 87040; 87070; 87077; 87186; 87205; 93005; 94640; 99285; J0131; J0456; J0696; J1171; J1650; J2270; J2405; J3475; Q9967

== ENCOUNTER → 2024-09-26 14:26 | Outpatient (BNV) | payer MEDICAID, SELFPAY | PROVIDERS: PCP Family Medicine; Visit Provider Radiology Diagnostic Radiology | DX: R91.8 Other nonspecific abnormal finding of lung field (principal) | CPT/HCPCS: 71046; 71260 ==

== ENCOUNTER → 2024-09-26 14:27 | Outpatient (BNV) | payer MEDICAID, SELFPAY | PROVIDERS: Admitting Provider Student in an Organized Health Care Education/Training Program; Emergency Provider Internal Medicine; PCP Family Medicine; Visit Provider Internal Medicine Cardiovascular Disease | DX: R94.31 Abnormal electrocardiogram [ECG] [EKG] (principal) | CPT/HCPCS: 93010 ==

== ENCOUNTER → 2024-09-26 19:47 | Outpatient (BNV) | payer MEDICAID, SELFPAY | PROVIDERS: Admitting Provider Student in an Organized Health Care Education/Training Program; Emergency Provider Internal Medicine; PCP Family Medicine; Visit Provider Student in an Organized Health Care Education/Training Program | DX: J18.9 Pneumonia, unspecified organism (principal) | CPT/HCPCS: 99223; 99232; 99239 ==

== ENCOUNTER → 2024-09-26 19:47 | Outpatient (BNV) | payer MEDICAID, SELFPAY | PROVIDERS: Admitting Provider Student in an Organized Health Care Education/Training Program; Emergency Provider Internal Medicine; PCP Family Medicine; Visit Provider Hospitalist | DX: J45.41 Moderate persistent asthma with (acute) exacerbation (principal); J11.1 Influenza due to unidentified influenza virus with other respiratory manifestations; J18.9 Pneumonia, unspecified organism | CPT/HCPCS: 99223 ==